=== PATIENT | male | born 1955 | race Caucasian/White ===

== ENCOUNTER 2016-10-19 13:06 | Emergency (ER) | payer BC, OTHER ==
[~2016-10-19] VITALS: Ht 180.3 cm; Wt 81.7 kg
[~2016-10-19 13:06] MED LIST: ALEVE220 MG PO; ATORVASTATIN CA40 MG PO; CRESTOR10 MG PO; LEVOTHYROXIN0.112 M1 PO
[2016-10-19] MEDS ORDERED: COZAAR 25 MG TA25 M1 PO (13:26)
[2016-10-19 14:09] LABS: HEMOGLOBIN 10.6 gm/dL (14.0-18.0); MCH 28.1 pg (26.0-34.0); MCV 85.1 fL (80.0-100.0); PLATELET COUNT 393 thou/uL (150-400); RBC 3.76 mil/uL (4.50-6.00); RDW 15.3 % (10.5-14.5); WBC 12.6 thou/uL (4.0-11.0)
[2016-10-19 14:10] LABS: MANUAL DIFF YES
[2016-10-19 14:21] LABS: ANION GAP 7 mmol/L (7-16); BUN 15 mg/dL (7-18); CALCIUM 8.6 mg/dL (8.5-10.1); CHLORIDE 104 mmol/L (98-107); CO2 30 mmol/L (21-32); CREATININE 0.9 mg/dL (0.7-1.3); GLUCOSE 91 mg/dL (74-106); POTASSIUM 3.7 mmol/L (3.5-5.1); SODIUM 141 mmol/L (136-145)
[2016-10-19 14:26] LABS: ALBUMIN 3.1 g/dL (3.4-5.0); ALKALINE PHOSPHATASE 108 U/L (46-116); DIRECT BILIRUBIN < 0.1 mg/dL (<0.1-0.3); SGOT 33 U/L (15-37); SGPT 39 U/L (30-65); TOTAL BILIRUBIN 0.2 mg/dL (<0.1-1.0); TOTAL PROTEIN 6.8 g/dL (6.4-8.2)
[2016-10-19 14:42] LABS: ABSOLUTE NEUTROPHILS 8.8 thou/uL (1.4-8.2); TOTAL CELL COUNT 100
[2016-10-19 16:06] VITALS: BP 112/74
== END 2016-10-19 15:47 | disposition home or self-care (01) ==
LOC: ER 13:06
PROVIDERS: Emergency Medicine
DX: K43.2 Incisional hernia without obstruction or gangrene (principal); R19.09 Other intra-abdominal and pelvic swelling, mass and lump; E78.00 Pure hypercholesterolemia, unspecified; E03.9 Hypothyroidism, unspecified; F10.99 Alcohol use, unspecified with unspecified alcohol-induced disorder; Z90.81 Acquired absence of spleen; Z88.0 Allergy status to penicillin